=== PATIENT | female | born 1980 | race Hispanic/Latino ===

== ENCOUNTER 2025-01-14 15:31 | Emergency (ER) | payer BC, MEDICAID ==
[~2025-01-14] VITALS: Ht 157.5 cm; Wt 68.0 kg
--- NOTE | 2025-01-14 17:00 | HMCIMG ---
Exam Type: CT HEAD/BRAIN W/O CONTRAST Clinical Information: head ache, tinnitus Comparison: None CT Dose Index (CTDI): 57.33 mGy Dose Length Product (DLP): 956.79 total mGy-cm Findings: The examination is unremarkable. An-white matter junction is preserved. No intra or extra axial lesions or fluid collections are seen. Specifically, an and white matter are normal in signal characteristics with normal caliber of ventricles and periventricular cisterns with no evidence of intra or or extra-axial hemorrhage, lacunar infarct, or major territorial infarct, mass, or other abnormality. There are no infarcts. There are no hemorrhages. Periventricular white matter locations are preserved. The orbital contents and structures of the posterior fossa are intact. Skull windows demonstrates status post right mastoidectomy. Impression: No acute brain pathology. This study was performed using dose reduction techniques to include automated exposure control and/or adjustment of the mA and/or kV according to patient size.
--- NOTE | 2025-01-14 17:07 | ERN ---
ED Note History of Present Illness Stated Complaint: WEAKNESS Chief Complaint: Earache Time Seen by MD: 15:39 Time Seen by Midlevel: 15:44 Dictation: 44-year-old female with history of ruptured TM and mastoidectomy years ago coming in complaining of humming to her right ear and headache. Patient states this has been going on since [address] scan was done four months ago where they told her they she had no infection and her bone. Denies having any fever, nausea vomiting diarrhea. Patient states the headache is only when she gets the humming in her ear. Patient already sees ENT. Patient reports she wants something to be done so she knows she does not have a stroke, or something in her brain. Allergies: Coded Allergies: No Known Drug Allergies (Unverified Allergy, Intermediate, 01/14/25) Past Medical History Past Medical History: No Pertinent History Surgical History: Other Surgical History Other: EAR DRUM Review of System Dictation Constitutional: Negative for fever,chills, and weight loss Eyes: Negative for injury, pain,redness, and discharge ENT: Complaining of humming to the right ear and headache Cardiovascular: Negative for chest pain, palpitations, and edema Respiratory: Negative for shortness of breath, cough, and wheezing, Abdomen/GI: Negative for abdominal pain, nausea, vomiting, diarrhea, and constipation Back: Negative for injury and pain : Negative for injury, bleeding and discharge MS/Extremity: Negative for injury and deformity Skin: Negative for rash, and discoloration Neuro: Negative for headache, weakness, numbness, tingling, and seizure Psych: Negative for suicide ideation, homicidal ideation, and hallucinations Review of Systems: was completed Initial Vital Sign VS Vital Signs Date Time Temp Pulse Resp B/P (MAP) Pulse Ox O2 Delivery O2 Flow Rate FiO2 01/14/25 15:31 99.0 103 20 139/84 99 0 Physical Exam Dictation General: awake, alert, NAD Head/Face: Normocephalic, atraumatic Eyes: PERRL, EOMI, vision at baseline ENT: oral cavity clear, right TM ruptured, right ear canal minimal discharge and erythema. Left ear intact Neck: Trachea midline, supple, no nuchal rigidity Cardiovascular: RRR, normal S1/S2, No MRGs, no JVD Respiratory: CTAB, no respiratory distress, No rales or wheezes Abdomen: Soft, non-tender, non-distended, normal bowel sounds, no guarding or rebound. Skin: Warm, dry, normal turgor, no rash MS/Extremity: Pulses equal, no cyanosis, neurovascular intact, FROM Neuro: COAx4, GCS 15, strength 5/5, CN 2-12 intact, normal cerebellar exam, normal gait, Psych: Normal behavior, mood, and affect normal Results (Laboratory/Radiology) Laboratory/Radiology Laboratory Tests Test 01/14/25 17:55 White Blood Count 6.6 K/uL (4.8-10.8) Red Blood Count 4.15 MIL/uL (4.00-5.50) Hemoglobin 10.9 g/dL (12.0-16.0) L Hematocrit 34.8 % (36-48) L Mean Corpuscular Volume 83.9 fL (79-99) Mean Corpuscular Hemoglobin 26.3 pg (27.0-33.0) L Mean Corpuscular Hemoglobin Concent 31.3 g/dL (32.0-36.0) L Red Cell Distribution Width 15.1 % (11.0-15.5) Platelet Count 245 K/uL (130-400) Mean Platelet Volume 9.8 fL (7.5-10.5) Immature Granulocyte % (Auto) 0.8 % (0-1) Neutrophils (%) (Auto) 78.8 % (40.0-77.0) H Lymphocytes (%) (Auto) 14.6 % (21.0-51.0) L Monocytes (%) (Auto) 4.7 % (3.0-13.0) Eosinophils (%) (Auto) 0.5 % (0.0-8.0) Basophils (%) (Auto) 0.6 % (0.0-5.0) Neutrophils # (Auto) 5.2 K/uL (1.8-7.7) Lymphocytes # (Auto) 1.0 K/uL (1.0-4.8) Monocytes # (Auto) 0.3 K/uL (0.1-1.0) Eosinophils # (Auto) 0.03 K/uL (0.00-0.70) Basophils # (Auto) 0.04 K/uL (0.00-0.20) Absolute Immature Granulocyte (auto 0.05 K/uL (0-1) Nucleated Red Blood Cells 0.0 % (0.0-0.19) Sodium Level 140 mmol/L (136-145) Potassium Level 4.0 mmol/L (3.5-5.1) Chloride Level 103 mmol/L (101-111) Carbon Dioxide Level 27 mmol/L (21-32) Blood Urea Nitrogen 10 mg/dL (7-18) Creatinine 0.5 mg/dL (0.5-1.0) Glomerular Filtration Rate Calc 120 mL/min (>90) Random Glucose 100 mg/dL (70-105) Total Calcium 8.8 mg/dL (8.5-10.1) Labs Reviewed?: Yes CT Scan Comment: [facility] [id number] [place] [id number] IMAGING REPORT Signed PATIENT: GERMÁN DIAZ MR#: [id number] : 1980 SEX: F AGE: 44 LOCATION: [facility] ORDER 14 STATUS: REG ER REPORT#: [id number] SERVICE [id number] REASON: head ache, tinnitus ORDERING PHYSICIAN: RAD DE LEON NP PROCEDURE: HEAD WO - CT HEAD/BRAIN W/O CONTRAST Exam Type: CT HEAD/BRAIN W/O CONTRAST Clinical Information: head ache, tinnitus Comparison: None CT Dose Index (CTDI): 57.33 mGy Dose Length Product (DLP): 956.79 total mGy-cm Findings: The examination is unremarkable. An-white matter junction is preserved. No intra or extra axial lesions or fluid collections are seen. Specifically, an and white matter are normal in signal characteristics with normal caliber of ventricles and periventricular cisterns with no evidence of intra or or extra-axial hemorrhage, lacunar infarct, or major territorial infarct, mass, or other abnormality. There are no infarcts. There are no hemorrhages. Periventricular white matter locations are preserved. The orbital contents and structures of the posterior fossa are intact. Skull windows demonstrates status post right mastoidectomy. Impression: No acute brain pathology. This study was performed using dose reduction techniques to include automated exposure control and/or adjustment of the mA and/or kV according to patient size. ED Course ED Course Orders Procedure Category Date Status Time Cbc With Differential LAB 01/14/25 Complete 16:11 Basic Metabolic Panel LAB 01/14/25 Complete 16:11 Ct Head/Brain W/O CT 01/14/25 Resulted Contrast 16:11 Ketorolac PHA 01/14/25 Complete Tromethamine 15mg/Ml 17:51 Hydrocodone/Apap PHA 01/14/25 Complete 5/325 (Nada 5/325mg) 17:51 Current Medications Medications (Trade) Dose Ordered Sig/Iraida Route PRN Reason Start Time Stop Time Status Last Admin Dose Admin Acetaminophen/ Hydrocodone Bitart (NORco 5/325MG) 1 tab ONCE STAT PO 01/14/25 17:51 01/14/25 17:55 DC 01/14/25 18:13 Ketorolac Tromethamine (toRADol) 15 mg ONCE STAT IM 01/14/25 17:51 01/14/25 17:55 DC 01/14/25 18:12 Vital Signs Date Time Temp Pulse Resp B/P (MAP) Pulse Ox O2 Delivery O2 Flow Rate FiO2 01/14/25 15:31 99.0 103 20 139/84 99 0 Medical Decision Making MDM MDM: 44-year-old female with history of ruptured TM and mastoidectomy years ago coming in complaining of humming to her right ear and headache. Patient states this has been going on since [address] scan was done four months ago where they told her they she had no infection and her bone. Denies having any fever, nausea vomiting diarrhea. Patient states the headache is only when she gets the humming in her ear. Patient already sees ENT. Patient reports she wants something to be done so she knows she does not have a stroke, or something in her brain. Blood work unremarkable. CT of the head shows no acute finding. Discussed findings with the patient. Educated patient that we will give her antibiotic drops for her right otitis externa she is to follow up with her ENT. Educated with a headache maybe related to her the tinnitus that she has Differential diagnosis: Tinnitus, headache, otitis media, otitis externa Rationale: Tests considered and ordered secondary to shared decision making include: Previous outside records reviewed: Old ER visits. Risk of complication and/or morbidity or mortality of patient management: None Medications-Per medication reconciliation Need for hospitalization: Patient does not meet criteria for hospitalization. Need for emergency major/minor surgery: No There are no social concerns with this patient. Prescription drug management Prescriptions will include symptomatic care Patient's prior external medical records from other ER visits were reviewed by me as indicated. Prior testing and results from previous visits were reviewed. Prior tests were taken into account with medical decision making and resource utilization, independent historian/historians were used to obtain complete medical history. I independently interpreted the test that were performed, results were reviewed by me and considered findings on radiology if ordered. Medical management and examination interpretation discussions were had by me with other qualified healthcare professionals as indicated for the patient's care. DX & DISP Disposition: Discharge Departure Impression: Primary Impression: Tinnitus Additional Impressions: Headache, Otitis externa Condition: Stable Scripts Ofloxacin (Ofloxacin) 0.3 % Drops 1 DROP OP QID for 7 Days, #5 ML 0 Refills Prov: RAD ED LEON NP 01/14/25 Additional Instructions: Follow up with your specialist. Take Tylenol or Motrin [id number] for pain control. Referrals: SELF,REFERRAL (PCP) Time of Disposition: 18:25 I have reviewed the case, and I agree with, Diagnosis and Plan RAD DE LEON NP Jan 14, 2025 17:07
[2025-01-14 18:06] LABS: BASOPHILS # (AUTO) 0.04 K/uL (0.00-0.20); BASOPHILS % (AUTO) 0.6 % (0.0-5.0); EOSINOPHILS # (AUTO) 0.03 K/uL (0.00-0.70); EOSINOPHILS % (AUTO) 0.5 % (0.0-8.0); HEMATOCRIT 34.8 % (36-48); IMMATURE GRANULOCYTE ABSOLUTE 0.05 K/uL (0-1); LYMPHOCYTES % (AUTO) 14.6 % (21.0-51.0); MEAN CORPUSCULAR HEMOGLOBIN 26.3 pg (27.0-33.0); MEAN CORPUSCULAR HGB CONC 31.3 g/dL (32.0-36.0); MEAN CORPUSCULAR VOLUME 83.9 fL (79-99); MONOCYTES # (AUTO) 0.3 K/uL (0.1-1.0); MONOCYTES % (AUTO) 4.7 % (3.0-13.0); NEUTROPHILS # (AUTO) 5.2 K/uL (1.8-7.7); NEUTROPHILS % (AUTO) 78.8 % (40.0-77.0); PLATELET COUNT (AUTO) 245 K/uL (130-400); RED BLOOD CELL COUNT(AUTO) 4.15 MIL/uL (4.00-5.50); RED CELL DISTRIBUTION WIDTH 15.1 % (11.0-15.5); WHITE BLOOD COUNT (AUTO) 6.6 K/uL (4.8-10.8)
[2025-01-14] MEDS: ketOROlac 15MG/ML VIAL (15MG/ML) IM STA (18:12)
[2025-01-14] MEDS: HYDROcodone/APAP 5/325 1 TAB TABLET PO STA (18:13)
[2025-01-14 18:20] LABS: CREATININE 0.5 mg/dL (0.5-1.0)
[2025-01-14] MEDS ORDERED: OFLO5DRO OP (18:24)
[2025-01-14 18:33] VITALS: BP 131/80; PULSE 95; RESP 20; TEMP 98.9; O2SAT 99
== END 2025-01-14 18:43 | disposition home or self-care (01) ==
LOC: EDH 15:31
DX: H93.11 Tinnitus, right ear (principal); R51.9 Headache, unspecified; H60.91 Unspecified otitis externa, right ear
CPT/HCPCS: 99284; 70450; 80048; 85025; 36415; 96372; J1885